=== PATIENT | male | born 1965 | race Two or more races ===

== ENCOUNTER 2020-02-23 05:41 | Day surgery (SDC) | payer OTHER ==
[~2020-02-23 05:41] MED LIST: IRBESARTAN-HCT1 EACH PO; NAPROXEN500 MG PO; NEURONTIN300 MG PO; NORVASC5 MG PO; PERCOCET 5-3251 EACH PO; PLAVIX75 MG PO
[2020-02-23] MEDS ORDERED: KETO10TA2 PO (12:56)
[2020-02-23] MEDS ORDERED: PERCOCET 5-3251 EACH PO (12:56)
[2020-02-23] MEDS ORDERED: RECTICARE30 GM TOP (12:57)
== END 2020-02-23 21:22 | disposition home or self-care (01) ==
LOC: CIR.AMB 05:41 → EDSEX 09:30 → EDBD 09:30 → CIR.AMB 09:30
PROVIDERS: ATTEND Surgery
DX: K60.1 Chronic anal fissure (principal); K60.3 Anal fistula; K62.4 Stenosis of anus and rectum

== ENCOUNTER 2020-08-05 05:40 | Day surgery (SDC) | payer OTHER ==
[~2020-08-05 05:40] MED LIST changes: +KETO10TA2 PO; +RECTICARE30 GM TOP
== END 2020-08-05 10:00 | disposition home or self-care (01) ==
LOC: AMB-ENDOS 05:40
PROVIDERS: ATTEND Surgery
DX: K62.89 Other specified diseases of anus and rectum (principal); Z20.828 Contact with and (suspected) exposure to other viral communicable diseases